=== PATIENT | female | born 1990 | race Caucasian/White ===

== ENCOUNTER 2017-07-31 22:18 | Emergency (ER) | payer OTHER ==
[2017-07-31 22:49] VITALS: BP 96/46; PULSE 82; RESP 16; TEMP 97.5; O2SAT 100
[2017-07-31] MEDS ORDERED: Sodium Chloride 0.9% 1,000 ML IV STA (23:30)
[2017-07-31 23:53] LABS: BASO # 0.1 K/uL (0.0-0.2); BASO % 0.6 % (0.0-2.0); EOS # 0.2 K/uL (0.0-0.7); HEMOGLOBIN 12.8 g/dL (12.0-16.0); LYMPH # 2.4 K/uL (1.0-4.3); LYMPH % 27.9 % (20.0-40.0); MEAN CELL VOLUME 88.6 fl (81.0-99.0); MEAN CORPUSCULAR HEMOGLOBIN 29.7 pg (27.0-31.0); MEAN CORPUSCULAR HGB CONC 33.5 g/dL (33.0-37.0); MEAN PLATELET VOLUME 8.2 fl (7.2-11.7); MONO # 0.5 K/uL (0.0-0.8); MONO % 5.1 % (0.0-10.0); NEUT # 5.6 K/uL (1.8-7.0); NEUT % 64.4 % (50.0-75.0); RBC 4.31 Mil/uL (3.80-5.20); RED CELL DISTRIBUTION WIDTH 12.9 % (11.5-14.5); WHITE BLOOD COUNT 8.8 K/uL (4.8-10.8)
[2017-07-31 23:55] LABS: SQUAMOUS EPITHIAL < 1 /hpf (0-5); URINE BILIRUBIN NEGATIVE (NEGATIVE); URINE BLOOD NEGATIVE (NEGATIVE); URINE CLARITY CLEAR (Clear); URINE COLOR YELLOW (YELLOW); URINE GLUCOSE (UA) NEG (Normal); URINE LEUKOCYTE ESTERASE NEG Leu/uL (Negative); URINE NITRATE NEGATIVE (NEGATIVE); URINE PROTEIN 100 mg/dL (NEGATIVE); URINE UROBILINOGEN 0.2-1.0 mg/dL (0.2-1.0)
[2017-08-01 00:02] LABS: ALB/GLOB RATIO 1.4 (1.0-2.1); ALBUMIN 4.1 g/dL (3.5-5.0); ALT/SGPT 43 U/L (9-52); AST/SGOT 26 U/L (14-36); BLOOD UREA NITROGEN 28 mg/dl (7-17); CALCIUM 9.2 mg/dL (8.4-10.2); GFR AFRICAN-AMERICAN > 60; GFR NON-AFRICAN AMERICAN > 60
--- NOTE | 2017-08-01 00:56 | ED PDOC ---
HPI: Female Pain Time Seen by Provider: 07/31/17 23:05 Chief Complaint (Nursing): Female Genitourinary Chief Complaint (Provider): Back pain, specifically right flank, pain on urination History Per: Patient History/Exam Limitations: no limitations Onset/Duration Of Symptoms: Hrs Current Symptoms Are (Timing): Still Present Additional Complaint(s): 26 yo female with no medical problems presents with blood in urine, back pain, nausea. Pt states earlier today she was having some nausea and lightheadedness. Pt states over the course of the day she had frequent urination and burning on urination. Pt reports pain primarily right flank area. No similar in the past. Past Medical History Reviewed: Historical Data, Nursing Documentation, Vital Signs Vital Signs: Last Vital Signs Temp 97.5 F L 07/31/17 22:44 Pulse 82 07/31/17 22:44 Resp 16 07/31/17 22:44 BP 96/46 L 07/31/17 22:44 Pulse Ox 100 07/31/17 22:44 - Medical History PMH: No Chronic Diseases - Surgical History Surgical History: No Surg Hx - Family History Family History: States: No Known Family Hx - Living Arrangements Living Arrangements: With Family - Social History Current smoker - smoking cessation education provided: No - Allergies Allergies/Adverse Reactions: Allergies Allergy/AdvReac Type Severity Reaction Status Date / Time No Known Allergies Allergy Verified 07/31/17 22:44 Review of Systems ROS Statement: Except As Marked, All Systems Reviewed And Found Negative Constitutional: Positive for: Chills. Negative for: Fever Cardiovascular: Negative for: Chest Pain Respiratory: Negative for: Cough, Shortness of Breath Gastrointestinal: Positive for: Nausea. Negative for: Vomiting, Abdominal Pain Genitourinary Female: Positive for: Dysuria, Frequency, Hematuria Physical Exam - Reviewed Nursing Documentation Reviewed: Yes Vital Signs Reviewed: Yes - Physical Exam Appears: Positive for: Well, Non-toxic, No Acute Distress Head Exam: Positive for: ATRAUMATIC, NORMAL INSPECTION, NORMOCEPHALIC Skin: Positive for: Normal Color, Warm, DRY Eye Exam: Positive for: Normal appearance ENT: Positive for: Normal ENT Inspection Neck: Positive for: Normal, Painless ROM Cardiovascular/Chest: Positive for: Regular Rate, Rhythm Respiratory: Positive for: Normal Breath Sounds. Negative for: Accessory Muscle Use, Respiratory Distress Gastrointestinal/Abdominal: Positive for: Normal Exam, Bowel Sounds, Soft, Other ((+) right CVA ). Negative for: Tenderness Back: Positive for: Normal Inspection Extremity: Positive for: Normal ROM Neurologic/Psych: Positive for: Alert, Oriented - Laboratory Results Result Diagrams: 07/31/17 23:48 07/31/17 23:48 - ECG O2 Sat by Pulse Oximetry: 100 Medical Decision Making Medical Decision Making: Case discussed with Dr. Chan. CPK ordered. Disposition - Clinical Impression Clinical Impression: Dysuria, Flank pain - Patient ED Disposition Is Patient to be Admitted: No Counseled Patient/Family Regarding: Diagnosis - Disposition Disposition: Routine/Home Disposition Time: 00:57 Condition: GOOD
--- NOTE | 2017-08-01 02:02 | ED PDOC ---
- Laboratory Results Result Diagrams: 07/31/17 23:48 07/31/17 23:48 - ECG O2 Sat by Pulse Oximetry: 100 - Progress ED Course And Treament: Case endorsed to filing writer from Glynn MANZO pending labs Patient educated on findings, will treat for clinical pyelonephritis with rx Cipro (dose given in ED) Advised follow up PMD 2-3 days. Fluids. Return precautions given. Disposition - Clinical Impression Clinical Impression: Pyelonephritis - POA Present On Arrival: None - Disposition Disposition: Routine/Home Disposition Time: 02:01 Condition: GOOD Prescriptions: Ciprofloxacin HCl [Cipro] 500 mg PO BID #13 tab Instructions: Kidney Infection Forms: [facility] (Spanish)
== END 2017-08-01 02:30 | disposition home or self-care (01) ==
LOC: H.ER 22:18
DX: N12 Tubulo-interstitial nephritis, not specified as acute or chronic (principal)
CPT/HCPCS: 80053; 81003; 81025; 82550; 85025; 87040; 87086; 87804; 96360; 99282; J7040